=== PATIENT | female | born 2000 | race Caucasian/White ===

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

== ENCOUNTER → 2022-08-14 | Outpatient (REF) | payer OTHER ==
[~2022-08-14] MED LIST: BUPR10TASR PO; BUSP5TA PO; LEVO25TA5 PO
== END ==
LOC: M SFHCDERM 17:17
PROVIDERS: ATTEND Nurse Practitioner Family
DX: D22.5 Melanocytic nevi of trunk (principal)

== ENCOUNTER → 2023-06-04 | Outpatient (REF) | payer OTHER | LOC: M LAB REF 15:01 | PROVIDERS: ATTEND Surgery | DX: I78.1 Nevus, non-neoplastic (principal) ==